=== PATIENT | female | born 1990 | race Caucasian/White ===

== ENCOUNTER 2023-11-01 09:26 | Outpatient (CLI) | payer BC ==
--- NOTE | 2023-11-01 10:06 | XRAY Report ---
PROCEDURE: Lumbar Spine 2-3V INDICATIONS: SCIATICA TECHNIQUE: 3 views of the lumbar spine were acquired. COMPARISON: None. FINDINGS: Bones: 5 [id number] vertebrae are present. There is normal bony alignment. No vertebral body compression fractures. No suspicious bony lesions. Moderate degenerative disc disease at L4-L5. Soft tissues: Overlying bowel gas pattern is normal. No suspicious soft tissue calcifications. IMPRESSION: Moderate degenerative disc disease at L4-L5. Reviewed by: Vamsi Pelaez MD on 11/01/2023 10:04 AM [facility] Approved by: Vamsi Pelaez MD on 11/01/2023 10:04 AM [facility] Station ID: [id number]
--- NOTE | 2023-11-01 13:41 | MRI Report ---
PROCEDURE: LUMBAR SPINE WO INDICATIONS: LOW BACK PAIN TECHNIQUE: Noncontrast sagittal T1 spin echo and T2 fast echo, sagittal STIR, axial T1 and T2 fast spin echo thr ough the lumbar spine. In cases with scoliosis, additional coronal T2 fast spin echo may be performe d. COMPARISON: None. FINDINGS: Image quality: Excellent. Alignment and Curvature: There is normal bony alignment. Bone Marrow: Marrow is of normal overall signal. No acute vertebral body compression fractures. Spinal Cord: Conus medullaris terminates at the T12-L1 level. Visualized cord demonstrates normal s ignal and size. Paraspinous Soft Tissues: No paravertebral masses. T12-L1: Normal in appearance. L1-L2: Normal in appearance. L2-L3: Normal in appearance. L3-L4: Normal in appearance. L4-L5: Disc desiccation and height loss. Right subarticular disc protrusion severely narrowing the right lateral recess and abutting/impinging the descending right L5 nerve root. Mild central canal st enosis. No neuroforaminal stenosis. L5-S1: Disc desiccation and height loss. Tiny central disc protrusion with annular tear. No central canal or neuroforaminal stenosis. IMPRESSION: 1.Right subarticular disc protrusion at L4-L5 severely narrowing the right lateral recess and abuttin g versus impingement of the descending right L5 nerve root. Mild central canal stenosis. No neurofora chet stenosis. 2.Mild degenerative disc disease at L5-S1 without central canal or neuroforaminal stenosis. Reviewed by: Tereso Hurley MD on 11/01/2023 1:40 PM PST Approved by: Tereso Hurley MD on 11/01/2023 1:40 PM PST Station ID: [id number]
== END 2023-11-01 09:27 | disposition home or self-care (01) ==
LOC: DI 09:26
DX: M51.36 Other intervertebral disc degeneration, lumbar region (principal); M51.26 Other intervertebral disc displacement, lumbar region; M51.37 Other intervertebral disc degeneration, lumbosacral region; M48.061 Spinal stenosis, lumbar region without neurogenic claudication